=== PATIENT | male | born 1985 | race Caucasian/White ===

== ENCOUNTER 2017-04-07 08:21 | Emergency (ER) | payer OTHER, SELFPAY ==
[~2017-04-07] VITALS: Ht 175.3 cm; Wt 71.8 kg
[2017-04-07 08:28] VITALS: BP 119/61
[2017-04-07] MEDS ORDERED: predniSONE 20 MG TAB PO ONE (09:00)
[2017-04-07] MEDS ORDERED: CYCL10TA PO (09:00)
[2017-04-07] MEDS ORDERED: PRED20TA PO (09:00)
== END 2017-04-07 09:13 | disposition home or self-care (01) ==
LOC: M ED 08:21
DX: S39.012A Strain of muscle, fascia and tendon of lower back, initial encounter (principal); Z72.0 Tobacco use; X50.3XXA Overexertion from repetitive movements, initial encounter; Y92.89 Other specified places as the place of occurrence of the external cause; Y93.89 Activity, other specified; Y99.0 Civilian activity done for income or pay

== ENCOUNTER 2019-02-20 19:20 | Emergency (ER) | payer OTHER ==
[~2019-02-20] VITALS: Ht 175.3 cm; Wt 74.1 kg
[2019-02-20 19:20] VITALS: BP 126/71
[~2019-02-20 19:20] MED LIST: CYCL10TA PO; PRED20TA PO
[2019-02-20] MEDS ORDERED: NAPR-837 PO (23:29)
[2019-02-20] MEDS ORDERED: KETOROLAC TROMETHAMINE 10 MG TAB PO ONE (23:30)
== END 2019-02-20 23:46 | disposition home or self-care (01) ==
LOC: M ED 19:20
DX: S46.912A Strain of unspecified muscle, fascia and tendon at shoulder and upper arm level, left arm, initial encounter (principal); X58.XXXA Exposure to other specified factors, initial encounter; Y92.9 Unspecified place or not applicable; Y93.9 Activity, unspecified; Y99.9 Unspecified external cause status; Z72.0 Tobacco use; F12.10 Cannabis abuse, uncomplicated; Z88.0 Allergy status to penicillin

== ENCOUNTER → 2019-08-09 | Outpatient (CLI) | payer OTHER ==
[~2019-08-09] MED LIST changes: +NAPR-837 PO
--- NOTE | 2019-08-09 11:20 | REP ---
Left hand four views : There is no fracture or dislocation. Mineralization and joint spaces are normal. There are no calcifications or foreign bodies. Impression: Negative left hand . Electronically Signed by Vikas Miner MD 08/09/2019 11:11 A
== END ==
LOC: M RAD 10:37
PROVIDERS: ATTEND Physician Assistant Medical
DX: M79.642 Pain in left hand (principal)

== ENCOUNTER → 2022-09-02 | Outpatient (REF) ==
[~2022-09-02] MED LIST changes: +CYCL-707 PO; -CYCL10TA PO
== END ==
LOC: M PLAIMG 12:09
PROVIDERS: ATTEND Internal Medicine
DX: R52 Pain, unspecified (principal)

== ENCOUNTER 2023-08-07 09:23 | Emergency (ER) | payer OTHER ==
[~2023-08-07] VITALS: Ht 175.3 cm; Wt 73.0 kg
[2023-08-07] MEDS ORDERED: METH-1165 PO (11:26)
[2023-08-07] MEDS ORDERED: KETO10TAB PO (11:26)
[2023-08-07 11:36] VITALS: BP 145/95; TEMP 97.5; O2SAT 97
== END 2023-08-07 11:40 | disposition home or self-care (01) ==
LOC: M ED 09:23
DX: S39.012A Strain of muscle, fascia and tendon of lower back, initial encounter (principal); M62.830 Muscle spasm of back; F17.200 Nicotine dependence, unspecified, uncomplicated; Z88.1 Allergy status to other antibiotic agents; Y92.9 Unspecified place or not applicable; Y93.H1 Activity, digging, shoveling and raking; Y99.9 Unspecified external cause status; Z79.1 Long term (current) use of non-steroidal anti-inflammatories (NSAID); Z79.899 Other long term (current) drug therapy

== ENCOUNTER 2025-01-22 17:51 | Emergency (ER) | payer OTHER ==
[~2025-01-22] VITALS: Ht 175.3 cm; Wt 76.3 kg
[~2025-01-22 17:51] MED LIST changes: +KETO10TAB PO; +METH-1165 PO
[2025-01-22] MEDS ORDERED: ZOLO100T (18:09)
[2025-01-22 20:01] VITALS: BP 112/59; TEMP 98.3; O2SAT 98
== END 2025-01-22 22:02 | disposition left against medical advice (07) ==
LOC: M ED 17:51
DX: Z53.21 Procedure and treatment not carried out due to patient leaving prior to being seen by health care provider (principal)